=== PATIENT | male | born 1945 | race Caucasian/White ===

== ENCOUNTER 2017-01-21 12:43 | Emergency (ER) ==
[2017-01-21] MEDS ORDERED: NS 1,000 ML IV ONE (13:34)
[2017-01-21] MEDS ORDERED: ZOFRAN IV ONE (13:35)
[2017-01-21 14:21] LABS: HEMOGLOBIN 8.2 g/dL (14.0-18.0); LYMPH# 0.21 X1000 (1.2-3.4); LYMPH% 3.8 % (20.5-51.1); MANUAL DIFF NEEDED? YES; MCH 30.3 PG (27-31); MCHC 29.3 g/dL (33-37); MCV 103.3 FL (81-99); MONO# 0.14 X1000 (0.11-0.59); MONO% 2.6 % (1.7-9.3); NEUT% 93.6 % (42.2-75.2); PLT 214 X1000 (130-400); RBC 2.71 XMIL (4.7-6.1)
[2017-01-21 14:36] LABS: ALBUMIN 3.6 g/dL (3.5-5.0); CALCIUM 7.6 mg/dL (8.8-10.2); POTASSIUM 5.1 mmol/L (3.5-5.1); TOTAL BILIRUBIN 0.44 mg/dL (0.20-1.00); TOTAL PROTEIN 6.1 g/dL (6.3-8.3)
[2017-01-21 15:03] LABS: BANDS 3 % (0-1); LYMPHS 3 % (21-51); MONO 3 % (1-9)
[2017-01-21 15:04] LABS: HYPOCHROM 1+
--- NOTE | 2017-01-21 15:54 | Diag Imaging Result Document ---
PROCEDURE NAME: CHEST-PORTABLE - 01/21/2017 SINGLE FRONTAL RADIOGRAPH OF THE CHEST: COMPARISON: None available. FINDINGS: There is mild right basilar atelectasis and/or scarring. The left lung is clear. There is pleural scarring versus loculated pleural fluid along the periphery of the right lung. There are CABG changes. Cardiac silhouette appears to be mildly prominent. IMPRESSION: Right basilar atelectasis and/or scarring with suggestion of pleural thickening versus loculated pleural fluid on the right as described above.
[2017-01-21 16:48] LABS: URINE CULTURE NEEDED? NO; URINE MICRO REVIEW NEEDED? NO; URINE SOURCE CLEAN CATCH
[2017-01-21 16:53] LABS: BILIRUBIN URINE NEGATIVE (NEGATIVE); BLOOD URINE NEGATIVE (NEGATIVE); COLOR YELLOW; GLUCOSE URINE NEGATIVE (NEGATIVE); LEUKOCYTES URINE NEGATIVE (NEGATIVE); NITRITE URINE NEGATIVE (NEGATIVE); PROTEIN URINE NEGATIVE (NEGATIVE); TURBIDITY URINE CLEAR (CLEAR); UROBILINOGEN URINE NORMAL (NORMAL)
[2017-01-21 16:54] LABS: UR EPITHELIAL CELLS <10 /HPF (<10); URINE BACTERIA NEGATIVE /HPF; URINE RBC <10 /HPF (<10); URINE WBC <10 /HPF (<10)
[2017-01-21 18:15] VITALS: BP 138/72
--- NOTE | 2017-01-22 05:27 | PROVIDER DOCUMENTATION ---
HPI-Abdominal Pain/GI Problem - General Chief Complaint: Nausea/Vomiting Stated Complaint: N/V Time Seen by Provider: 01/21/17 13:16 Source: patient, family Allergies/Adverse Reactions: Patient Allergies Allergy/AdvReac Type Severity Reaction Status Date / Time zolpidem tartrate * Allergy Unknown Verified 01/21/17 13:06 [From Ambien] Home Medications: Home Medication List Medication Instructions Recorded Confirmed Last Taken Type Allopurinol 100 mg PO DAILY 01/21/17 01/21/17 01/20/17 History Aspirin [Aspir-Low] 81 mg PO DAILY 01/21/17 01/21/17 01/20/17 History Carvedilol 12.5 mg pe PO BID 01/21/17 01/21/17 01/20/17 History Folic Acid 1 mg PO DAILY 01/21/17 01/21/17 01/20/17 History Furosemide 40 mg PO BID 01/21/17 01/21/17 01/20/17 History Gemfibrozil 600 mg PO BID 01/21/17 01/21/17 01/20/17 History Hydralazine [Apresoline] 100 mg PO TID 01/21/17 01/21/17 01/20/17 History Insulin NPL/Insulin Lispro 100 unit SQ DIRECTED 01/21/17 01/21/17 01/20/17 History [Humalog Mix 75-25 Pen] Mycophenolate Mofetil 1,500 mg PO BID 01/21/17 01/21/17 01/20/17 History PRAVAstatin [Pravachol] 40 mg PO QHS 01/21/17 01/21/17 01/20/17 History Prednisone 5 mg PO DAILY 01/21/17 01/21/17 01/20/17 History Spironolactone 0.5 tab PO DAILY 01/21/17 01/21/17 01/20/17 History Tacrolimus 0.5 mg PO DAILY 01/21/17 01/21/17 01/20/17 History - History of Present Illness-ABD Nature of Presenting Problems: 71 yo s/p heart transplant with 3 days of n/v/d. Having 6 loose stools per day. Abdominal Pain Onset Location: reports: other (no abdominal pain) Quality of Pain: reports: none Onset/Duration: reports: 3 days ago Timing: reports: still present Exposure to sick contacts?: No Associated Symptoms: reports: diarrhea, dizziness, loss of appetite, malaise, nausea, vomiting, weakness. denies: fever/chills, genitourinary problems, syncope Last BM: this afternoon Dark Stools Present?: reports: none noticed Rectal Bleeding: reports: none # of Diarrhea Episodes: 6 Rectal Pain: reports: none # of Vomiting Episodes: 3 Emesis Description: reports: clear Bruising or Bleeding Gums?: No Similar Symptoms Previously?: No Review of Systems - Adult - REVIEW OF SYSTEMS - ADULT Constitutional: reports: fatique Eyes: reports: no symptoms reported Ears, Nose, Mouth & Throat: reports: no symptoms reported Cardiovascular: reports: other (heart transplant) Respiratory: reports: no symptoms reported Gastrointestinal: reports: see HPI Genitourinary: reports: no symptoms reported Musculoskeletal: reports: muscle aches Integumentary: reports: other (canker sores on lips and in mouth) Neurological: reports: other (neuropathy in feet) Psychiatric: reports: no symptoms reported Endocrine: reports: no symptoms reported Past History - Adult - PAST MEDICAL HISTORY-ADULT Review of Records: reports: Nursing Assessment Review, Medications Reviewed Major Childhood Illnesses: reports: history unknown Cardiovascular: reports: cardiac disease (s/p heart transplant [facility] 1991) Respiratory: reports: denies history Musculoskeletal: reports: denies history Neurological: reports: other (neuropathy) Psychiatric: reports: denies history Endocrine/Immune: reports: Diabetes Diabetes Type: Type 2 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 Other Conditions: reports: denies history Physical Exam-General - PHYSICAL EXAM-ADULT Initial Vital Signs Reviewed: Yes - CONSTITUTIONAL General Appearance: alert, no apparent distress, obese - EYES Eyes: PERRL/EOMI - HEAD, EARS, NOSE, MOUTH & THROAT HENMT: normocephalic/atraumatic, moist mucous membranes, other (aphthous ulcers inner lip and tongue) - NECK Neck: non-tender, supple, normal inspection - RESPIRATORY Respiratory: chest non-tender, lungs clear, normal breath sounds - CARDIOVASCULAR Cardiovascular: regular rate, rhythm, no gallop, no JVD, no murmur - GASTROINTESTINAL (ABDOMEN) Abdominal Exam: normal bowel sounds, non tender, soft, no organomegaly - MUSCULOSKELETAL Back Exam: normal inspection, no CVA tenderness, no vertebral tenderness Extremity: normal range of motion, non-tender, normal inspection, no pedal edema , no calf tenderness - SKIN Integumentary: normal color, warm/dry - NEUROLOGIC Neurologic: grossly normal Progress - PLAN OF CARE/RESULTS Progress/Plan/Lab Results: Laboratory Tests 01/21/17 01/21/17 01/21/17 13:35 13:35 13:35 WBC 5.47 RBC 2.71 L Hgb 8.2 L Hct 28.0 L MCV 103.3 H MCH 30.3 MCHC 29.3 L RDW Std Deviation 16.3 H Plt Count 214 MPV 11.0 H Immature Gran % (Auto) 0.0 Neut % (Auto) 93.6 H Lymph % (Auto) 3.8 L Parmer % (Auto) 2.6 Eos % (Auto) 0.0 Baso % (Auto) 0.0 Immature Gran # (Auto) 0.00 Neut # (Auto) 5.12 Lymph # (Auto) 0.21 L Parmer # (Auto) 0.14 Eos # (Auto) 0.00 Baso # (Auto) 0.00 Segmented Neutrophils 91 H Band Neutrophils 3 H Lymphocytes 3 L Monocytes 3 Hypochromia 1+ Poikilocytosis 1+ Anisocytosis 1+ Macrocytosis 1+ Ovalocytes 1+ Sodium 136 Potassium 5.1 Chloride 102 Carbon Dioxide 14 L Anion Gap 20 BUN 124 H Creatinine 3.4 H Estimated GFR/1.73 m2 18 BUN/Creatinine Ratio 36 Glucose 144 H Calculated Osmolality 314 Calcium 7.6 L Total Bilirubin 0.44 AST 11 ALT 6 L Alkaline Phosphatase 69 Troponin T Onk-E-Iechirzeihz Pept 818 H Total Protein 6.1 L Albumin 3.6 Globulin 2.5 Albumin/Globulin Ratio 1.4 Amylase 48 Lipase 31 Urine Source Urine Color Urine Turbidity Urine pH Ur Specific [place] Urine Protein Ur Glucose (Stick) Ur Ketones (Stick) Urine Blood Urine Nitrite Urine Bilirubin Urobilinogen Dipstick Urine Leukocytes Urine WBC (Auto) Urine RBC (Auto) U Epithel Cells (Auto) Urine Bacteria (Auto) 01/21/17 01/21/17 13:35 16:40 WBC RBC Hgb Hct MCV MCH MCHC RDW Std Deviation Plt Count MPV Immature Gran % (Auto) Neut % (Auto) Lymph % (Auto) Parmer % (Auto) Eos % (Auto) Baso % (Auto) Immature Gran # (Auto) Neut # (Auto) Lymph # (Auto) Parmer # (Auto) Eos # (Auto) Baso # (Auto) Segmented Neutrophils Band Neutrophils Lymphocytes Monocytes Hypochromia Poikilocytosis Anisocytosis Macrocytosis Ovalocytes Sodium Potassium Chloride Carbon Dioxide Anion Gap BUN Creatinine Estimated GFR/1.73 m2 BUN/Creatinine Ratio Glucose Calculated Osmolality Calcium Total Bilirubin AST ALT Alkaline Phosphatase Troponin T 0.054 Qwx-P-Pqkgallhzze Pept Total Protein Albumin Globulin Albumin/Globulin Ratio Amylase Lipase Urine Source CLEAN CATCH Urine Color YELLOW Urine Turbidity CLEAR Urine pH 5.0 Ur Specific [place] 1.010 Urine Protein NEGATIVE Ur Glucose (Stick) NEGATIVE Ur Ketones (Stick) NEGATIVE Urine Blood NEGATIVE Urine Nitrite NEGATIVE Urine Bilirubin NEGATIVE Urobilinogen Dipstick NORMAL Urine Leukocytes NEGATIVE Urine WBC (Auto) <10 Urine RBC (Auto) <10 U Epithel Cells (Auto) <10 Urine Bacteria (Auto) NEGATIVE Laboratory Tests 01/21/17 01/21/17 01/21/17 13:35 13:35 13:35 WBC 5.47 RBC 2.71 L Hgb 8.2 L Hct 28.0 L MCV 103.3 H MCH 30.3 MCHC 29.3 L RDW Std Deviation 16.3 H Plt Count 214 MPV 11.0 H Immature Gran % (Auto) 0.0 Neut % (Auto) 93.6 H Lymph % (Auto) 3.8 L Parmer % (Auto) 2.6 Eos % (Auto) 0.0 Baso % (Auto) 0.0 Immature Gran # (Auto) 0.00 Neut # (Auto) 5.12 Lymph # (Auto) 0.21 L Parmer # (Auto) 0.14 Eos # (Auto) 0.00 Baso # (Auto) 0.00 Segmented Neutrophils 91 H Band Neutrophils 3 H Lymphocytes 3 L Monocytes 3 Hypochromia 1+ Poikilocytosis 1+ Anisocytosis 1+ Macrocytosis 1+ Ovalocytes 1+ Sodium 136 Potassium 5.1 Chloride 102 Carbon Dioxide 14 L Anion Gap 20 BUN 124 H Creatinine 3.4 H Estimated GFR/1.73 m2 18 BUN/Creatinine Ratio 36 Glucose 144 H Calculated Osmolality 314 Calcium 7.6 L Total Bilirubin 0.44 AST 11 ALT 6 L Alkaline Phosphatase 69 Troponin T Jka-Q-Epvbojqortw Pept 818 H Total Protein 6.1 L Albumin 3.6 Globulin 2.5 Albumin/Globulin Ratio 1.4 Amylase 48 Lipase 31 Urine Source Urine Color Urine Turbidity Urine pH Ur Specific [place] Urine Protein Ur Glucose (Stick) Ur Ketones (Stick) Urine Blood Urine Nitrite Urine Bilirubin Urobilinogen Dipstick Urine Leukocytes Urine WBC (Auto) Urine RBC (Auto) U Epithel Cells (Auto) Urine Bacteria (Auto) 01/21/17 01/21/17 13:35 16:40 WBC RBC Hgb Hct MCV MCH MCHC RDW Std Deviation Plt Count MPV Immature Gran % (Auto) Neut % (Auto) Lymph % (Auto) Par[place] % (Auto) Eos % (Auto) Baso % (Auto) Immature Gran # (Auto) Neut # (Auto) Lymph # (Auto) Parmer # (Auto) Eos # (Auto) Baso # (Auto) Segmented Neutrophils Band Neutrophils Lymphocytes Monocytes Hypochromia Poikilocytosis Anisocytosis Macrocytosis Ovalocytes Sodium Potassium Chloride Carbon Dioxide Anion Gap BUN Creatinine Estimated GFR/1.73 m2 BUN/Creatinine Ratio Glucose Calculated Osmolality Calcium Total Bilirubin AST ALT Alkaline Phosphatase Troponin T 0.054 Ipm-D-Sccrltqcdrv Pept Total Protein Albumin Globulin Albumin/Globulin Ratio Amylase Lipase Urine Source CLEAN CATCH Urine Color YELLOW Urine Turbidity CLEAR Urine pH 5.0 Ur Specific [place] 1.010 Urine Protein NEGATIVE Ur Glucose (Stick) NEGATIVE Ur Ketones (Stick) NEGATIVE Urine Blood NEGATIVE Urine Nitrite NEGATIVE Urine Bilirubin NEGATIVE Urobilinogen Dipstick NORMAL Urine Leukocytes NEGATIVE Urine WBC (Auto) <10 Urine RBC (Auto) <10 U Epithel Cells (Auto) <10 Urine Bacteria (Auto) NEGATIVE Orders Category Date Time Status Saline Loc DIRECTED Care 01/21/17 13:33 Active NPO Diet 01/21/17 13:33 Completed CHEST-PORTABLE [RAD] Stat Exams 01/21/17 13:34 Draft AMYLASE [CHEM] Stat Lab 01/21/17 13:35 Completed CBC WITH ELECTRONIC DIFF [HEME] Stat Lab 01/21/17 13:35 Completed COMPREHENSIVE METABOLIC PANEL [CHEM] Stat Lab 01/21/17 13:35 Completed LIPASE [CHEM] Stat Lab 01/21/17 13:35 Completed TROPONIN T Stat Lab 01/21/17 13:35 Completed URINALYSIS W/POSS RFLX CULT [URINALYSIS] Stat Lab 01/21/17 16:40 Completed pro-bnp [PRO B-NATRIURETIC PEPTIDE] Stat Lab 01/21/17 13:35 Completed 0.9% Sodium Chloride Inj [Ns] 1,000 ml Med 01/21/17 13:34 Discontinued IV 500 mls/hr Ondansetron [Zofran] Med 01/21/17 13:35 Discontinued 4 mg IV NOW ONE EKG [EKG] Stat Ther 01/21/17 12:58 Draft Vital Signs Temp Pulse Resp BP Pulse Ox 01/21/17 18:05 84 21 138/72 96 01/21/17 17:00 83 19 134/71 96 01/21/17 16:00 86 24 134/71 97 01/21/17 14:00 86 114/63 97 01/21/17 13:05 97.5 F L 97 H 19 127/82 97 zolpidem tartrate * [From [facility]] Allergy (Verified 01/21/17 13:06) Unknown Allopurinol 100 mg PO DAILY 01/21/17 Aspirin [Aspir-Low] 81 mg PO DAILY 01/21/17 Carvedilol 12.5 mg pe PO BID 01/21/17 Folic Acid 1 mg PO DAILY 01/21/17 Furosemide 40 mg PO BID 01/21/17 Gemfibrozil 600 mg PO BID 01/21/17 Hydralazine [Apresoline] 100 mg PO TID 01/21/17 Insulin NPL/Insulin Lispro [Humalog Mix 75-25 Pen] 100 unit SQ DIRECTED 01/21 Mycophenolate Mofetil 1,500 mg PO BID 01/21/17 PRAVAstatin [Pravachol] 40 mg PO QHS 01/21/17 Prednisone 5 mg PO DAILY 01/21/17 Spironolactone 0.5 tab PO DAILY 01/21/17 Tacrolimus 0.5 mg PO DAILY 01/21/17 I&O 01/20/17 01/21/17 01/22/17 06:59 06:59 06:59 Output Total 90 Balance -90 Laboratory 01/21/17 01/21/17 01/21/17 16:40 13:35 13:35 WBC RBC Hgb Hct MCV MCH MCHC RDW Std Deviation Plt Count MPV Immature Gran % (Auto) Neut % (Auto) Lymph % (Auto) [place] % (Auto) Eos % (Auto) Baso % (Auto) Immature Gran # (Auto) Neut # (Auto) Lymph # (Auto) [place] # (Auto) Eos # (Auto) Baso # (Auto) Segmented Neutrophils Band Neutrophils Lymphocytes Monocytes Hypochromia Poikilocytosis Anisocytosis Macrocytosis Ovalocytes Sodium Potassium Chloride Carbon Dioxide Anion Gap BUN Creatinine Estimated GFR/1.73 m2 BUN/Creatinine Ratio Glucose Calculated Osmolality Calcium Total Bilirubin AST ALT Alkaline Phosphatase Troponin T 0.054 Uak-Q-Avzwgtvanea Pept 818 H Total Protein Albumin Globulin Albumin/Globulin Ratio Amylase Lipase Urine Source CLEAN CATCH Urine Color YELLOW Urine Turbidity CLEAR Urine pH 5.0 Ur Specific [place] 1.010 Urine Protein NEGATIVE Ur Glucose (Stick) NEGATIVE Ur Ketones (Stick) NEGATIVE Urine Blood NEGATIVE Urine Nitrite NEGATIVE Urine Bilirubin NEGATIVE Urobilinogen Dipstick NORMAL Urine Leukocytes NEGATIVE Urine WBC (Auto) <10 Urine RBC (Auto) <10 U Epithel Cells (Auto) <10 Urine Bacteria (Auto) NEGATIVE 01/21/17 01/21/17 13:35 13:35 WBC 5.47 RBC 2.71 L Hgb 8.2 L Hct 28.0 L MCV 103.3 H MCH 30.3 MCHC 29.3 L RDW Std Deviation 16.3 H Plt Count 214 MPV 11.0 H Immature Gran % (Auto) 0.0 Neut % (Auto) 93.6 H Lymph % (Auto) 3.8 L Parmer % (Auto) 2.6 Eos % (Auto) 0.0 Baso % (Auto) 0.0 Immature Gran # (Auto) 0.00 Neut # (Auto) 5.12 Lymph # (Auto) 0.21 L Parmer # (Auto) 0.14 Eos # (Auto) 0.00 Baso # (Auto) 0.00 Segmented Neutrophils 91 H Band Neutrophils 3 H Lymphocytes 3 L Monocytes 3 Hypochromia 1+ Poikilocytosis 1+ Anisocytosis 1+ Macrocytosis 1+ Ovalocytes 1+ Sodium 136 Potassium 5.1 Chloride 102 Carbon Dioxide 14 L Anion Gap 20 BUN 124 H Creatinine 3.4 H Estimated GFR/1.73 m2 18 BUN/Creatinine Ratio 36 Glucose 144 H Calculated Osmolality 314 Calcium 7.6 L Total Bilirubin 0.44 AST 11 ALT 6 L Alkaline Phosphatase 69 Troponin T Hxk-V-Kogprmevjtk Pept Total Protein 6.1 L Albumin 3.6 Globulin 2.5 Albumin/Globulin Ratio 1.4 Amylase 48 Lipase 31 Urine Source Urine Color Urine Turbidity Urine pH Ur Specific [place] Urine Protein Ur Glucose (Stick) Ur Ketones (Stick) Urine Blood Urine Nitrite Urine Bilirubin Urobilinogen Dipstick Urine Leukocytes Urine WBC (Auto) Urine RBC (Auto) U Epithel Cells (Auto) Urine Bacteria (Auto) - EKG 1 Time of EKG reading by physician:: 14:00 EKG Read and Signed by:: Carolynn Hernandez EKG Interpretation (*Must complete 3 of following elements*): Abnormal Rate: 102 Rhythm: sinus tach with pvc Chambers: normal QRS: RBB KS Interval: normal ST Wave: normal - CONSULTS/PCP/HOSPITALIST Notification #1 *Consult/PCP/Hospitalist*: Dr Laureano [facility] -cardiology Time Discussed: 14:45 Reason/Comments: Recommends transfer to [facility] - CHANGE OF SHIFT REPORT (ED Provider) Tentative Impression of Patient: n/v/diarrhea in heart transplant pt with renal insufficency Departure - Departure Time of Disposition Order: 14:45 DIAGNOSIS: Gastroenteritis, Heart transplant as cause of abnormal reaction or later complication, Renal insufficiency, Anemia Disposition: [facility] 02 Certified Medical Emergency: Emergent Condition: Fair Referrals: None,PCP [Primary Care Provider] -
--- NOTE | 2017-01-22 05:34 | EKG Report ---
Test Performed on : 01/21/2017 1:13:58 PM Test Reason : TACHYCARDIA Blood Pressure : / mmHG Vent. Rate : 102 BPM Atrial Rate : 102 BPM P-R Int : 186 ms QRS Dur : 140 ms QT Int : 408 ms P-R-T Axes : 048 089 058 degrees QTc Int : 531 ms Sinus tachycardia. with occasional premature ventricular complexes. Right bundle branch block Abnormal ECG When compared with ECG of 06-APR-2010 15:43, premature ventricular complexes. are now present Borderline criteria for Inferior infarct are no longer present Unconfirmed Result
== END 2017-01-21 18:10 | disposition short-term general hospital (02) ==
LOC: EDBD → ED 12:43
DX: K52.9 Noninfective gastroenteritis and colitis, unspecified (principal); D64.9 Anemia, unspecified; N28.9 Disorder of kidney and ureter, unspecified; R94.31 Abnormal electrocardiogram [ECG] [EKG]; R11.2 Nausea with vomiting, unspecified; R19.7 Diarrhea, unspecified; R42 Dizziness and giddiness; R53.81 Other malaise; Z79.899 Other long term (current) drug therapy; R53.1 Weakness; R53.83 Other fatigue; K12.0 Recurrent oral aphthae; E11.9 Type 2 diabetes mellitus without complications; E66.9 Obesity, unspecified; Z79.82 Long term (current) use of aspirin; Z79.4 Long term (current) use of insulin; Z94.1 Heart transplant status
CPT/HCPCS: 71010; 80053; 81001; 82150; 83690; 83880; 84484; 85025; 93005; J2405; J7030